=== PATIENT | female | born 1970 | race Caucasian/White ===

== ENCOUNTER → 2017-01-21 | Outpatient (CLI) | payer MEDICARE, MEDICAID | END | disposition home or self-care (01) | LOC: LAB.O 10:31 | PROVIDERS: ATTEND Nurse Practitioner Family | DX: E78.2 Mixed hyperlipidemia (principal); E11.9 Type 2 diabetes mellitus without complications; I10 Essential (primary) hypertension ==

== ENCOUNTER → 2018-04-05 | Outpatient (CLI) | payer MEDICARE, MEDICAID ==
--- NOTE | 2018-04-06 09:58 | RAD ---
EXAM DESCRIPTION: Foot,Left 2 Views CLINICAL HISTORY: 47 years Female, PAIN IN LEFT FOOT COMPARISON: None. FINDINGS: Two views of the left foot show no acute fracture or malalignment. There is a moderate-sized plantar calcaneal enthesophyte. The joint spaces are fairly well-maintained. No radiopaque foreign body or soft tissue gas. IMPRESSION: Calcaneal spurring, otherwise unremarkable exam. Electronically signed by: Barrett Yung MD 04/06/2018 9:56 AM CDT
== END ==
LOC: LAB.O 16:42
PROVIDERS: ATTEND Nurse Practitioner Family
DX: M79.672 Pain in left foot (principal); M77.32 Calcaneal spur, left foot; E11.9 Type 2 diabetes mellitus without complications

== ENCOUNTER 2018-04-16 15:31 | Emergency (ER) | payer MEDICARE, MEDICAID ==
[2018-04-16] MEDS ORDERED: EPINEPHrine HCL AMP 1 MG/ML AMP ONE (15:32)
[2018-04-16] MEDS ORDERED: EPINEPHrine HCL AMP 1 MG/ML AMP IM ONE (15:34)
[2018-04-16] MEDS ORDERED: methylPREDNISolone SODIUM SUC 125 MG/2 ML VIAL IV ONE (15:35)
[2018-04-16] MEDS ORDERED: LACTATED RINGERS 1,000 ML IVS ONE (15:35)
[2018-04-16] MEDS ORDERED: diphenhydrAMINE HCL 25 MG CAP PO ONE (15:43)
[2018-04-16] MEDS ORDERED: diphenhydrAMINE HCL 50 MG/ML VIAL IV ONE (15:44)
--- NOTE | 2018-04-16 15:45 | ED.PDOC ---
History of Present Illness - General Chief Complaint: Allergic Reaction Stated Complaint: skin rash Time Seen by Provider: 04/16/18 15:34 Source: patient Exam Limitations: no limitations - History of Present Illness Initial Comments: Heidi Hinds 47 y/o female stated she took Allopurinol for her gout 2017 and noted rash on her neck which gradually worsened the last 4 days going down to her torso.She had previous allergic reaction to the medication last year and stated she was brought to another hospital.Stated has history of gout and replaced her medication with Uloric but not taking them yet. Timing/Duration: other - 4 days Severity: moderate Improving Factors: nothing Worsening Factors: nothing Associated Symptoms: other - achy throat Allergies/Adverse Reactions: Allergies Allopurinol Allergy (Verified 04/16/18 15:37) Isosorbide Nitrate [Isosorbide] Allergy (Verified 04/13/16 10:18) Labetalol Adverse Reaction (Verified 07/10/15 06:48) Home Medications: Ambulatory Orders Lisinopril 20 mg PO BID 08/30/14 Amlodipine Besylate 10 mg PO DAILY 07/10/15 Metformin HCl 1,000 mg PO BID 07/10/15 Metoprolol Tartrate 100 mg PO BID 07/10/15 Simvastatin [Zocor] 20 mg PO BEDTIME 07/10/15 Aspirin [(None)] 325 mg PO QD 03/12/16 Glyburide 2.5 mg PO DAILY PRN 03/12/16 Omeprazole 20 mg PO DAILY 03/12/16 Ciprofloxacin [Cipro] 250 mg PO BID #14 tab 04/01/16 Prednisone 10 mg PO DAILY 7 Days #7 tab 04/16/18 Review of Systems - Review of Systems Constitutional: States: no symptoms reported EENTM: States: no symptoms reported Respiratory: States: no symptoms reported Cardiology: States: no symptoms reported Gastrointestinal/Abdominal: States: no symptoms reported Genitourinary: States: no symptoms reported Musculoskeletal: States: no symptoms reported Skin: States: see HPI Neurological: States: no symptoms reported Past Medical History (General) - Patient Medical History Hx Stroke: Yes Hx Congestive Heart Failure: No Hx Hypertension: Yes Hx Diabetes: Yes Hx Gastroesophageal Reflux: Yes Hx Cancer: No Hx Hepatitis C: No Hx MRSA: No MRSA Source:: Wound Surgical History: appendectomy, cholecystectomy, other - hernia repair , hysterectomy - Vaccination History Hx Tetanus, Diphtheria Vaccination: No Hx Influenza Vaccination: No Hx Pneumococcal Vaccination: No - Social History Hx Tobacco Use: Yes Hx Chewing Tobacco Use: Yes Hx Alcohol Use: Yes - Occasional Hx Substance Use: No Hx Substance Use Treatment: No Hx Depression: No Hx Physical Abuse: No Hx Emotional Abuse: No Hx Suspected Abuse: No - Female History Patient : No Family Medical History - Family History Mother Name: mother Age (years): 70 Living Status: Still Living Hx Family Cancer: Yes - cervix-mom Physical Exam - Physical Exam General Appearance: Alert, Comfortable, No apparent distress Eye Exam: bilateral normal Ears, Nose, Throat: hearing grossly normal, normal ENT inspection, normal pharynx Neck: non-tender, full range of motion, supple, normal inspection Respiratory: chest non-tender, lungs clear, normal breath sounds, no respiratory distress Cardiovascular/Chest: normal peripheral pulses, regular rate, rhythm, no murmur Peripheral Pulses: radial,right: 2+, radial,left: 2+ Gastrointestinal/Abdominal: normal bowel sounds, non tender, soft, no organomegaly Back Exam: normal inspection, no CVA tenderness, no vertebral tenderness Extremity: no pedal edema, no calf tenderness Neurologic: no motor/sensory deficits, alert, oriented x 3 Skin Exam: normal color, warm/dry, rash - neck down to trunk Progress - Progress Progress: 04/16/18 16:54 Vital Signs - 8 hr 04/16/18 15:35 Temperature 99.3 F Pulse Rate [ 112 H right brachial] Respiratory 20 Rate Blood Pressure 109/75 [right brachial ] O2 Sat by Pulse 96 Oximetry 04/16/18 17:29 04/16/18 17:00 Magnesium Oxide [Mag-Ox Tab] 800 mg PO DAILY Laboratory Results - last 24 hr 04/16/18 04/16/18 04/16/18 15:41 15:56 15:56 WBC 10.8 RBC 5.21 Hgb 15.2 Hct 44.7 MCV 85.9 MCH 29.1 MCHC 33.9 RDW 14.0 Plt Count 387 MPV 9.7 Absolute Neuts (auto) 7.30 H Absolute Lymphs (auto) 1.80 Absolute Monos (auto) 0.30 Absolute Eos (auto) 1.40 H Absolute Basos (auto) 0.00 Neutrophils % 67.5 Lymphocytes % 16.5 L Monocytes % 2.7 Eosinophils % 13.0 H Basophils % 0.3 PT 10.0 INR 1.00 PTT (SP) 25.8 Sodium 137 Potassium 2.7 L Chloride 100 L Carbon Dioxide 26 Anion Gap 13.7 BUN 22 H Creatinine 1.15 BUN/Creatinine Ratio 19.1 Random Glucose 146 H Serum Osmolality 279.8 Uric Acid 14.1 H* Calcium 8.6 Magnesium 1.6 L Total Bilirubin 0.5 Direct Bilirubin < 0.1 Indirect Bilirubin 0.4 AST 19 ALT 22 Alkaline Phosphatase 68 Creatine Kinase 18 L CK-MB (CK-2) 0.7 CK-MB (CK-2) % Not Reportable Troponin I < 0.02 Serum Total Protein 7.3 Albumin 3.6 Urine Color Urine Appearance Urine pH Ur Specific Tabiona Urine Protein Urine Glucose (UA) Urine Ketones Urine Blood Urine Nitrite Urine Bilirubin Urine Urobilinogen Ur Leukocyte Esterase Urine RBC Urine WBC Ur Epithelial Cells Urine Bacteria Urine Opiates Screen Negative Urine Barbiturates Negative Ur Phencyclidine Scrn Negative U Amphetamin/Meth Scrn Negative U Benzodiazepines Scrn Negative U Cocaine Metab Screen Negative U Cannabinoids Screen Negative 04/16/18 16:37 WBC RBC Hgb Hct MCV MCH MCHC RDW Plt Count MPV Absolute Neuts (auto) Absolute Lymphs (auto) Absolute Monos (auto) Absolute Eos (auto) Absolute Basos (auto) Neutrophils % Lymphocytes % Monocytes % Eosinophils % Basophils % PT INR PTT (SP) Sodium Potassium Chloride Carbon Dioxide Anion Gap BUN Creatinine BUN/Creatinine Ratio Random Glucose Serum Osmolality Uric Acid Calcium Magnesium Total Bilirubin Direct Bilirubin Indirect Bilirubin AST ALT Alkaline Phosphatase Creatine Kinase CK-MB (CK-2) CK-MB (CK-2) % Troponin I Serum Total Protein Albumin Urine Color Yellow Urine Appearance Cloudy Urine pH 6.0 Ur Specific Tabiona <= 1.005 Urine Protein Negative Urine Glucose (UA) Negative Urine Ketones Negative Urine Blood Negative Urine Nitrite Negative Urine Bilirubin Negative Urine Urobilinogen 0.2 Ur Leukocyte Esterase Trace H Urine RBC 0 Urine WBC 1-3 Ur Epithelial Cells 5-10 Urine Bacteria 1+ Urine Opiates Screen Urine Barbiturates Ur Phencyclidine Scrn U Amphetamin/Meth Scrn U Benzodiazepines Scrn U Cocaine Metab Screen U Cannabinoids Screen - Results/Orders Results/Orders: 04/16/18 17:00 Magnesium Oxide [Mag-Ox Tab] 800 mg PO DAILY Laboratory Results - last 24 hr 04/16/18 04/16/18 04/16/18 15:41 15:56 15:56 WBC 10.8 RBC 5.21 Hgb 15.2 Hct 44.7 MCV 85.9 MCH 29.1 MCHC 33.9 RDW 14.0 Plt Count 387 MPV 9.7 Absolute Neuts (auto) 7.30 H Absolute Lymphs (auto) 1.80 Absolute Monos (auto) 0.30 Absolute Eos (auto) 1.40 H Absolute Basos (auto) 0.00 Neutrophils % 67.5 Lymphocytes % 16.5 L Monocytes % 2.7 Eosinophils % 13.0 H Basophils % 0.3 PT 10.0 INR 1.00 PTT (SP) 25.8 Sodium 137 Potassium 2.7 L Chloride 100 L Carbon Dioxide 26 Anion Gap 13.7 BUN 22 H Creatinine 1.15 BUN/Creatinine Ratio 19.1 Random Glucose 146 H Serum Osmolality 279.8 Uric Acid 14.1 H* Calcium 8.6 Magnesium 1.6 L Total Bilirubin 0.5 Direct Bilirubin < 0.1 Indirect Bilirubin 0.4 AST 19 ALT 22 Alkaline Phosphatase 68 Creatine Kinase 18 L CK-MB (CK-2) 0.7 CK-MB (CK-2) % Not Reportable Troponin I < 0.02 Serum Total Protein 7.3 Albumin 3.6 Urine Color Urine Appearance Urine pH Ur Specific Tabiona Urine Protein Urine Glucose (UA) Urine Ketones Urine Blood Urine Nitrite Urine Bilirubin Urine Urobilinogen Ur Leukocyte Esterase Urine RBC Urine WBC Ur Epithelial Cells Urine Bacteria Urine Opiates Screen Negative Urine Barbiturates Negative Ur Phencyclidine Scrn Negative U Amphetamin/Meth Scrn Negative U Benzodiazepines Scrn Negative U Cocaine Metab Screen Negative U Cannabinoids Screen Negative 04/16/18 16:37 WBC RBC Hgb Hct MCV MCH MCHC RDW Plt Count MPV Absolute Neuts (auto) Absolute Lymphs (auto) Absolute Monos (auto) Absolute Eos (auto) Absolute Basos (auto) Neutrophils % Lymphocytes % Monocytes % Eosinophils % Basophils % PT INR PTT (SP) Sodium Potassium Chloride Carbon Dioxide Anion Gap BUN Creatinine BUN/Creatinine Ratio Random Glucose Serum Osmolality Uric Acid Calcium Magnesium Total Bilirubin Direct Bilirubin Indirect Bilirubin AST ALT Alkaline Phosphatase Creatine Kinase CK-MB (CK-2) CK-MB (CK-2) % Troponin I Serum Total Protein Albumin Urine Color Yellow Urine Appearance Cloudy Urine pH 6.0 Ur Specific Tabiona <= 1.005 Urine Protein Negative Urine Glucose (UA) Negative Urine Ketones Negative Urine Blood Negative Urine Nitrite Negative Urine Bilirubin Negative Urine Urobilinogen 0.2 Ur Leukocyte Esterase Trace H Urine RBC 0 Urine WBC 1-3 Ur Epithelial Cells 5-10 Urine Bacteria 1+ Urine Opiates Screen Urine Barbiturates Ur Phencyclidine Scrn U Amphetamin/Meth Scrn U Benzodiazepines Scrn U Cocaine Metab Screen U Cannabinoids Screen Departure - Departure Clinical Impression: Urticaria due to drug allergy, Gouty arthropathy Allergic reaction caused by a drug Qualifiers: Encounter type: initial encounter Qualified Code(s): T78.40XA - Allergy, unspecified, initial encounter Time of Disposition: 17:30 Disposition: Discharge to Home or Self Care Condition: Fair Departure Forms: ED Discharge - Pt. Copy, Patient Portal Self Enrollment Instructions: Gout (DC), Lifestyle Changes to Manage Gout, Gout, Low Purine Diet Referrals: DANNI AGGARWAL IV, [employer]ERBOARD BOXES ESTIMATOR [Primary Care Provider] - 1-2 Weeks Prescriptions: Prednisone 10 mg PO DAILY 7 Days #7 tab Home Medications: Ambulatory Orders Lisinopril 20 mg PO BID 08/30/14 Amlodipine Besylate 10 mg PO DAILY 07/10/15 Metformin HCl 1,000 mg PO BID 07/10/15 Metoprolol Tartrate 100 mg PO BID 07/10/15 Simvastatin [Zocor] 20 mg PO BEDTIME 07/10/15 Aspirin [(None)] 325 mg PO QD 03/12/16 Glyburide 2.5 mg PO DAILY PRN 03/12/16 Omeprazole 20 mg PO DAILY 03/12/16 Ciprofloxacin [Cipro] 250 mg PO BID #14 tab 04/01/16 Prednisone 10 mg PO DAILY 7 Days #7 tab 04/16/18 Additional Instructions: DISCONTINUE ALLOPURINOL and HYDROCHLORTHIAZIDE (water pill);Recheck with primary MD for referral to Math Instructor ;Continue with rest of medications
[2018-04-16 15:50] VITALS: TEMP 99.3
[2018-04-16] MEDS ORDERED: POTASSIUM CHLORIDE 20 MEQ TAB PO ONE (16:55)
[2018-04-16] MEDS ORDERED: MAGNESIUM OXIDE 400 MG TAB PO SCH (17:00)
[2018-04-16 17:16] VITALS: O2SAT 98
[2018-04-16 17:58] VITALS: BP 94/68
== END 2018-04-16 17:58 | disposition home or self-care (01) ==
LOC: ER 15:31
DX: L50.0 Allergic urticaria (principal); T50.4X5A Adverse effect of drugs affecting uric acid metabolism, initial encounter; M10.9 Gout, unspecified; E87.6 Hypokalemia; I10 Essential (primary) hypertension; K21.9 Gastro-esophageal reflux disease without esophagitis; Z86.73 Personal history of transient ischemic attack (TIA), and cerebral infarction without residual deficits; Z87.891 Personal history of nicotine dependence
CPT/HCPCS: 36415; 80048; 80076; 80307; 81001; 82550; 82553; 84484; 84550; 85025; 85610; 85730; J1200; J2930; J7120; Q0163

== ENCOUNTER 2018-05-21 08:16 | Emergency (ER) | payer MEDICARE, MEDICAID ==
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
[2018-05-21] MEDS ORDERED: KETOROLAC TROMETHAMINE INJ 30 MG/ML VIAL IM ONE (09:16)
[2018-05-21] MEDS ORDERED: ORPHENADRINE CITRATE 30 MG/ML AMP IM ONE (09:16)
[2018-05-21] MEDS ORDERED: HYDROcodone 10MG/APAP 325MG 1 EA TAB PO ONE (09:16)
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
[2018-05-21 09:53] VITALS: BP 167/107; TEMP 96.7; O2SAT 99
== END 2018-05-21 10:15 | disposition home or self-care (01) ==
LOC: ER 08:16
DX: M54.2 Cervicalgia (principal); M54.5 Low back pain; M79.602 Pain in left arm; M79.605 Pain in left leg; E78.00 Pure hypercholesterolemia, unspecified; I10 Essential (primary) hypertension; K21.9 Gastro-esophageal reflux disease without esophagitis; Z79.899 Other long term (current) drug therapy; Z79.82 Long term (current) use of aspirin; Z88.8 Allergy status to other drugs, medicaments and biological substances; Z87.891 Personal history of nicotine dependence; V49.49XA Driver injured in collision with other motor vehicles in traffic accident, initial encounter; Y92.410 Unspecified street and highway as the place of occurrence of the external cause
CPT/HCPCS: 70450; 72125; 72131; J1885; J2360

== ENCOUNTER 2018-06-21 00:57 | Emergency (ER) | payer MEDICARE, MEDICAID ==
[2018-06-21 01:08] VITALS: TEMP 97.3
[2018-06-21] MEDS ORDERED: ALUM & MAG HYDROX-SIMETHICONE 30 ML UD ONE (01:35)
[2018-06-21] MEDS ORDERED: LIDOCAINE HCL 2% (MOUTH-THROAT) 15 ML UD ONE (01:35)
[2018-06-21] MEDS: ALUM & MAG HYDROX-SIMETHICONE 30 ML, LIDOCAINE VISCOUS 2% 15 ML PO ONE ×2 (01:38)
[2018-06-21] MEDS: PANTOPRAZOLE SODIUM IV 40 MG VIAL IV ONE (01:38)
[2018-06-21] MEDS: ONDANSETRON ODT 8 MG TAB SL ONE (01:38)
[2018-06-21] MEDS: ASPIRIN TABLET 325 MG TAB PO ONE (01:38)
[2018-06-21] MEDS: PANTOPRAZOLE SODIUM TAB 40 MG PO ONE (01:54)
--- NOTE | 2018-06-21 02:00 | ED.PDOC ---
History of Present Illness - General Source: patient Exam Limitations: no limitations - History of Present Illness Initial Comments: the patient is a 47-year-old female presenting to the emergency room secondary to waking up with substernal chest pain. No radiation. Mild nausea. No history of any heart problems. She does have a history of reflux issues. On physical exam she has epigastric tenderness to palpation. No palpitations. No syncope or near syncope. She reports good recent blood sugar control. Nothing really seems to make the chest pain worse or better. It is about a 6 out of 10 in severity. It is burning in nature. Timing/Duration: 1/2 hour Severity: moderate Improving Factors: nothing Worsening Factors: nothing Associated Symptoms: chest pain, nausea/vomiting <Paulino Jeffries L - Last Filed: 06/21/18 07:00> <Herman Tinajero - Last Filed: 06/21/18 07:27> - General Chief Complaint: Chest Pain/OR Stated Complaint: CP mid-sternum, burning chest Time Seen by Provider: 06/21/18 01:06 - History of Present Illness Allergies/Adverse Reactions: Allergies Allopurinol Allergy (Verified 04/16/18 15:37) Isosorbide Nitrate [Isosorbide] Allergy (Verified 04/13/16 10:18) Labetalol Adverse Reaction (Verified 07/10/15 06:48) Home Medications: Ambulatory Orders Lisinopril 40 mg PO BID 08/30/14 Metformin HCl 1,000 mg PO BID 07/10/15 Simvastatin [Zocor] 20 mg PO BEDTIME 07/10/15 Exenatide [Bydureon] 2 mg SC DAILY 06/21/18 Hydrochlorothiazide 50 mg PO DAILY 06/21/18 Omeprazole [Prilosec Cap] 20 mg PO ACBK 06/21/18 Sucralfate Tab [Carafate Tab] 1 gm PO QID #120 tab 06/21/18 Review of Systems - Review of Systems Constitutional: States: no symptoms reported EENTM: States: no symptoms reported Respiratory: States: no symptoms reported Cardiology: States: chest pain Gastrointestinal/Abdominal: States: abdominal pain, nausea Genitourinary: States: no symptoms reported Musculoskeletal: States: no symptoms reported Skin: States: no symptoms reported Neurological: States: no symptoms reported Endocrine: States: no symptoms reported All other Systems: No Change from Baseline <Paulino Jeffries - Last Filed: 06/21/18 07:00> Past Medical History (General) - Patient Medical History Hx Seizures: No Hx Stroke: No Hx Dementia: No Hx Asthma: No Hx of COPD: No Hx Cardiac Disorders: Yes - hypercholesterolemia Hx Congestive Heart Failure: No Hx Pacemaker: No Hx Hypertension: Yes Hx Thyroid Disease: No Hx Diabetes: Yes Hx Gastroesophageal Reflux: Yes Hx Renal Disease: No Hx Cancer: No Hx of HIV: No Hx Hepatitis C: No Hx MRSA: No MRSA Source:: Wound Surgical History: appendectomy, cholecystectomy, Hysterectomy - Vaccination History Hx Tetanus, Diphtheria Vaccination: Yes Hx Influenza Vaccination: Yes Hx Pneumococcal Vaccination: No - Social History Hx Tobacco Use: No Hx Chewing Tobacco Use: Yes Hx Alcohol Use: Yes - Occasional Hx Substance Use: No Hx Substance Use Treatment: No Hx Depression: No Hx Physical Abuse: No Hx Emotional Abuse: No Hx Suspected Abuse: No - Female History Patient : No <Paulino Jeffries - Last Filed: 06/21/18 07:00> Family Medical History - Family History Mother Name: mother Age (years): 70 Living Status: Still Living Hx Family Cancer: Yes - cervix-mom Father Living Status: Hx Cardiac Disease: Yes <Paulino Jeffries - Last Filed: 06/21/18 07:00> Physical Exam - Physical Exam General Appearance: Alert, Comfortable, No apparent distress Eye Exam: bilateral normal Ears, Nose, Throat: hearing grossly normal, normal ENT inspection, normal pharynx Neck: full range of motion, supple Respiratory: lungs clear, normal breath sounds, no respiratory distress, no accessory muscle use Cardiovascular/Chest: normal peripheral pulses, regular rate, rhythm, no edema Peripheral Pulses: radial,right: 2+, radial,left: 2+ Gastrointestinal/Abdominal: soft - orbid obesity, other - pigastric tenderness to palpation Rectal Exam: deferred Back Exam: normal inspection Extremity: non-tender, normal inspection, no pedal edema, normal capillary refill 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 This is most likely esophagitis and gastritis given the combination of symptoms. The patient is however not without risk given her history of diabetes. The patient is very difficult IV access and blood draw access. It took more than 7 attempts just to obtain part of the blood that was initially needed. We will obtain a CMP along with cardiac enzymes at the second draw at around 6 AM. She is receiving a dose of aspirin along with GI medications. Oral medications are being given at this point due to lack of IV access. If she starts looking more like the pain is of cardiac origin then a central line will likely have to be placed. For now she does appear stable and cardiac origin appears significantly less likely. The risk of a central line does not appear warranted at this time. the patient will be followed closely. 06/21/18 03:03 initial set of laboratory work looks reassuring. 06/21/18 03:15 the patient is feeling significantly better.the d-dimer is at the upper limits of normal however the patient is a low pretest probability. Follow. 06/21/18 06:53 the patient is essentially chest pain-free at this point. Second set of enzymes is pending now more than 6 hours after the onset of the chest discomfort. If enzymes are negative the patient will likely be allowed to go home. We will plan on placing the patient on Carafate 4 times daily for the next month. Additionally she does have what may be a very mild urinary tract infection that is asymptomatic at this point. We will await culture results before starting antibiotics, as this may only worsen that gastritis in the short -term. - Results/Orders Results/Orders: EKG shows normal sinus rhythm at 96 bpm. Normal axis. Normal R-wave progression. No acute ST segment changes concerning for ischemia. She does have mild T-wave inversions in lead 3 only. Borderline prolonged QT interval. Laboratory Tests 06/21/18 06/21/18 06/21/18 01:40 01:40 01:40 WBC 10.0 RBC 5.26 Hgb 15.1 Hct 45.6 MCV 86.6 MCH 28.7 MCHC 33.2 RDW 14.3 Plt Count 286 MPV 10.4 Absolute Neuts (auto) 4.20 Absolute Lymphs (auto) 4.40 H Absolute Monos (auto) 0.90 H Absolute Eos (auto) 0.40 Absolute Basos (auto) 0.10 Neutrophils % 42.6 Lymphocytes % 43.8 Monocytes % 8.8 Eosinophils % 3.9 Basophils % 0.9 PT 9.9 INR 0.99 PTT (SP) 20.2 L D-Dimer, Quantitative 0.63 H* Sodium 140 Potassium 3.8 Chloride 104 Carbon Dioxide 23 Anion Gap 16.8 BUN 14 Creatinine 0.91 BUN/Creatinine Ratio 15.4 POC Glucose Random Glucose 93 Serum Osmolality 279.6 Calcium 9.8 Magnesium 2.0 Total Bilirubin 1.0 AST 102 H ALT 50 Alkaline Phosphatase 97 Creatine Kinase 61 CK-MB (CK-2) 0.9 CK-MB (CK-2) % Not Reportable Troponin I < 0.02 B-Natriuretic Peptide < 5.0 Serum Total Protein 8.5 H Albumin 4.4 Globulin 4.1 H Albumin/Globulin Ratio 1.1 Amylase 49 Lipase 25 Serum HCG, Qual Urine Color Urine Appearance Urine pH Ur Specific Alpine Urine Protein Urine Glucose (UA) Urine Ketones Urine Blood Urine Nitrite Urine Bilirubin Urine Urobilinogen Ur Leukocyte Esterase Urine RBC Urine WBC Ur Epithelial Cells Urine Bacteria 06/21/18 06/21/18 06/21/18 01:40 01:53 01:55 WBC RBC Hgb Hct MCV MCH MCHC RDW Plt Count MPV Absolute Neuts (auto) Absolute Lymphs (auto) Absolute Monos (auto) Absolute Eos (auto) Absolute Basos (auto) Neutrophils % Lymphocytes % Monocytes % Eosinophils % Basophils % PT INR PTT (SP) D-Dimer, Quantitative Sodium Potassium Chloride Carbon Dioxide Anion Gap BUN Creatinine BUN/Creatinine Ratio POC Glucose 89 Random Glucose Serum Osmolality Calcium Magnesium Total Bilirubin AST ALT Alkaline Phosphatase Creatine Kinase CK-MB (CK-2) CK-MB (CK-2) % Troponin I B-Natriuretic Peptide Serum Total Protein Albumin Globulin Albumin/Globulin Ratio Amylase Lipase Serum HCG, Qual Negative Urine Color Yellow Urine Appearance Clear Urine pH 7.0 Ur Specific Alpine 1.010 Urine Protein Negative Urine Glucose (UA) Negative Urine Ketones Negative Urine Blood Moderate H Urine Nitrite Positive H Urine Bilirubin Negative Urine Urobilinogen 0.2 Ur Leukocyte Esterase Trace H Urine RBC 1-3 Urine WBC 1-3 Ur Epithelial Cells 3-5 Urine Bacteria 3+ H <Paulino Jeffries - Last Filed: 06/21/18 07:00> - Progress Progress: 06/21/18 07:23 Second set of cardiac enzymes was WNL discuss with patient. <Bassam Tinajeroheidi Reddy - Last Filed: 06/21/18 07:27> Departure - Departure Diet: bland diet, diabetic diet Activity: increase activity as tolerated <Paulino Jeffries - Last Filed: 06/21/18 07:00> - Departure Time of Disposition: 07:20 Comments: follow up with primary Md11 June 2018;continue with all home medications ; Return to ER as needed. <TanviJustinoSutton R - Last Filed: 06/21/18 07:27> - Departure Clinical Impression: Esophagitis, Atypical chest pain Disposition: Discharge to Home or Self Care Condition: Fair Departure Forms: ED Discharge - Pt. Copy, Patient Portal Self Enrollment Instructions: Acid Reflux (Gastroesophageal Reflux Disease), Adult (DC) Referrals: DANNI AGGARWAL [employer] [Primary Care Provider] - 1-5 Days Prescriptions: Sucralfate Tab [Carafate Tab] 1 gm PO QID #120 tab Home Medications: Ambulatory Orders Lisinopril 40 mg PO BID 08/30/14 Metformin HCl 1,000 mg PO BID 07/10/15 Simvastatin [Zocor] 20 mg PO BEDTIME 07/10/15 Exenatide [Bydureon] 2 mg SC DAILY 06/21/18 Hydrochlorothiazide 50 mg PO DAILY 06/21/18 Omeprazole [Prilosec Cap] 20 mg PO ACBK 06/21/18 Sucralfate Tab [Carafate Tab] 1 gm PO QID #120 tab 06/21/18 Additional Instructions: the patient is a 47-year-old female that presented with substernal and epigastric pain early acute in onset. Clinical syndrome is more consistent with gastritis and esophagitis. Cardiac enzymes are reassuring. The patient will be placed on Carafate 4 times daily for the next month. Her Bydureon and metformin may be exacerbating the issue somewhat. She does possibly have a small urinary tract infection but we will await a urine culture before starting any antibiotics at this point as it is essentially asymptomatic and the antibiotics may worsen the stomach issues. She does need follow-up with her primary care doctor in a few days. ER warnings were given.
--- NOTE | 2018-06-21 02:31 | RAD ---
Acute abdominal series on 06/21/2018 CLINICAL INDICATION: Acute onset epigastric pain, substernal chest pain COMPARISON: 01/04/2015 FINDINGS: CHEST: The lungs are clear. Cardiac, hilar and mediastinal contours are within normal limits. Pulmonary vascularity is within normal limits. ABDOMEN: There is no free air. Calcifications in the pelvis are consistent with phleboliths. No other abnormal calcification or mass effect is noted. Bowel gas pattern is nonspecific. No significant increased stool to suggest significant constipation is noted. No bony abnormality is noted. IMPRESSION: 1. No acute cardiopulmonary disease. 2. Nonspecific abdomen. Electronically signed by: Niles Jennings 06/21/2018 2:30 AM [employer]
[2018-06-21] MEDS: SUCRALFATE 1 GM/10 ML 1 GM UD PO ONE (03:32)
[2018-06-21 07:38] VITALS: BP 134/93; O2SAT 99
== END 2018-06-21 07:41 | disposition home or self-care (01) ==
LOC: ER 00:57
DX: K20.9 Esophagitis, unspecified (principal); R07.89 Other chest pain; E11.9 Type 2 diabetes mellitus without complications; K21.9 Gastro-esophageal reflux disease without esophagitis; E78.00 Pure hypercholesterolemia, unspecified; I10 Essential (primary) hypertension; Z87.891 Personal history of nicotine dependence; Z90.49 Acquired absence of other specified parts of digestive tract; Z79.84 Long term (current) use of oral hypoglycemic drugs; Z79.899 Other long term (current) drug therapy; Z88.8 Allergy status to other drugs, medicaments and biological substances